=== PATIENT | female | born 1990 | race Caucasian/White ===

== ENCOUNTER 2016-12-01 17:51 | Emergency (ER) | payer OTHER ==
[~2016-12-01] VITALS: Ht 157.5 cm; Wt 53.5 kg
[~2016-12-01 17:51] MED LIST: BACTRIM DS TAB1 EACH PO; FLAGYL500 MG PO
--- NOTE | 2016-12-01 18:12 | ED HEADACHE COMPLAINT ---
See Addendum History of Present Illness General Chief Complaint: Headache Stated Complaint: BORDEN Source: patient Exam Limitations: no limitations Vital Signs & Intake/Output Vital Signs & Intake/Output Vital Signs Date Time Temp Pulse Resp B/P Pulse O2 O2 Flow FiO2 Ox Delivery Rate 12/01 1753 96.7 81 20 123/78 98 Room Air Allergies Coded Allergies: NO KNOWN ALLERGIES (04/14/16) Reconcile Medications Bupropion HCl (Bupropion XL) (Unknown Strength) TAB.ER.24H (Unknown Dose) UNKNOWN (Reported) Gabapentin 300 MG CAPSULE 1 CAP PO TID ANXIETY (Reported) Levonorgestrel (Mirena) 20 MCG/24 HOUR (5 YEARS) IUD CONTROL (Reported) Methylprednisolone. (Medrol) 4 MG TAB.DS.PK 1 DP PO AD migraine Metoclopramide HCl (Reglan) 10 MG TABLET 1 TAB PO Q6-8 PRN nausea/headache Naproxen Sodium (Aleve) 220 MG CAPSULE 2 CAP PO PRN PAIN (Reported) Triage Note: PT TO ED C/O MIGRAINE X 6 DAYS. STATES WAS SEEN AT ANOTHER HOSPITAL 2 DAYS AGO, GIVEN IV MEDS WITH SOME RELIEF. +PHOTOSENSITIVITY, NAUSEA, AND SENSITVITY TO SOUNDS. PT RECENTLY STARTED ON WELLBUTRIN. PT STATES SHE DOES NOT WANT NARCOTICS DUE TO "BEING CLEAN OFF DRUGS FOR 3 YEARS". Triage Nurses Notes Reviewed? yes : No Patient currently breastfeeds: No HPI: Patient is a 26-year-old female presents complaining of severe headache. Headache times approximately 6 days. Pain is a sharp pain, worsens with light and noise. Patient reports that 2 days prior to the onset of her headache her psychiatrist changed her from Neurontin to Wellbutrin. Patient has stopped taking Wellbutrin with no improvement. Patient was seen at another hospital 2 days ago, was administered Toradol, Reglan, Benadryl with brief improvement then pain returned. Headache is currently severe. Patient reports intermittent right upper extremity pain since the onset of her headache. Patient had migraines several years ago. Patient denies numbness, weakness, recent trauma, fevers, rash. (DANG CABELLO,JESUS) Past History Travel History Traveled to [place] past 21 day No Medical History Any Pertinent Medical History? see below for history Psychiatric: anxiety, depression, substance abuse Surgical History Surgical History: non-contributory Psychosocial History What is your primary language Portuguese Tobacco Use: Never used ETOH Use: denies use Illicit Drug Use: denies illicit drug use Family History Hx Contributory? No (JESUS SILVER) Review of Systems Review of Systems Constitutional: Denies: chills, fever. Eyes: Reports: photophobia. Ears, Nose, Throat, Mouth: Reports: no symptoms. Respiratory: Denies: cough, short of breath. Cardiovascular: Denies: chest pain. Gastrointestinal/Abdominal: Reports: nausea, vomiting. Denies: abdominal pain. Genitourinary: Reports: no symptoms. Musculoskeletal: Denies: back pain, neck pain. Skin: Reports: no symptoms. Neurological/Psychological: Reports: see HPI. Hematologic/Endocrine: Reports: no symptoms. Endocrine: Reports: no symptoms. Immunologic/Allergic: Reports: no symptoms. (JESUS SILVER) Physical Exam Physical Exam General Appearance: well developed/nourished, alert, awake Head: atraumatic, normal appearance Eyes: Bilateral: normal appearance, PERRL, EOMI. Ears, Nose, Throat: normal pharynx, normal ENT inspection, hearing grossly normal Neck: normal inspection, supple, full range of motion, no midline tenderness, no appreciable bruit Respiratory: normal breath sounds, no respiratory distress, lungs clear Cardiovascular: regular rate/rhythm Gastrointestinal: soft, non-tender Back: normal inspection, normal range of motion Extremities: normal inspection, normal capillary refill, normal range of motion, no edema Psychiatric: awake, alert, oriented x 3 Cranial Nerves: normal hearing, normal speech, PERRL Coordination/Gait: normal gait Motor/Sensory: no motor/sensory deficits Skin: intact, normal color, warm/dry Core Measures Severe Sepsis Present: No Septic Shock Present: No (JESUS SILVER) Progress Differential Diagnosis: carotid dissection, cluster BORDEN, IC mass/tumor, intracranial Hem., migraine BORDEN, musculoskeletal pain, post LP headache, subarach. Hem., tension BORDEN, viral cephalgia Plan of Care: Orders Procedure Date/time Status HUMAN BETA HCG SCREEN 12/01 1818 Complete COMPREHENSIVE METABOLIC PANEL 12/01 1818 Complete CBC WITHOUT DIFFERENTIAL 12/01 1818 Complete Laboratory Tests 12/01/16 1841: Anion Gap 9, Estimated GFR > 60, BUN/Creatinine Ratio 20.0, Glucose 90, Calcium 9.7, Total Bilirubin 0.7, AST 14, ALT 24, Alkaline Phosphatase 38, Total Protein 6.5, Albumin 3.9, Globulin 2.6, Albumin/Globulin Ratio 1.5, Total Beta HCG NEGATIVE, CBC w Diff NO MAN DIFF REQ, RBC 4.71, MCV 86.5, MCH 28.8, RDW 13.6, MPV 9.8, Gran % 55.1, Lymphocytes % 35.4, Monocytes % 7.4, Eosinophils % 1.6, Basophils % 0.5, Absolute Granulocytes 4.3, Absolute Lymphocytes 2.8, Absolute Monocytes 0.6, Absolute Eosinophils 0.1, Absolute Basophils 0, PUBS MCHC 33.4 1929: Headache is moderately improved. Continues with moderate headache. Reglan ordered. Patient reports she was on sumatriptan previously but it made her have burning sensations throughout her body. Patient awaiting CT scan. (JESUS SILVER) Diagnostic Imaging: Viewed by Me: CT Scan. Hand-Off Endorsed To: INDIO CHAMPION Endorsed Time: 1943 Pending: CT (JESUS SILVER) Radiology Impression: PATIENT: ERICKA NOBLES PRESENT AGE: 26 PATIENT ACCOUNT NO: [id number] : 88 LOCATION: [facility] ORDERING PHYSICIAN: JESUS CABELLO SERVICE DATE: 12/01/16 EXAM TYPE: CAT - CT HEAD WO IV CONTRAST EXAMINATION: CT HEAD WITHOUT CONTRAST CLINICAL INFORMATION: Migraine. Rule out mass or bleed. COMPARISON: None TECHNIQUE: Contiguous axial imaging was performed from the skull base to vertex without intravenous administration of contrast. DLP: 600.71 mGy-cm FINDINGS: There is no evidence of acute intracranial hemorrhage or territorial infarction. No abnormal mass effect or midline shift is seen. Wallace to white matter differentiation is well preserved. No extra-axial fluid collections are identified. The ventricles are normal in size. There is no abnormal attenuation within the brain parenchyma. The osseous structures and soft tissues are normal. The mastoid air cells and visualized portions of the paranasal sinuses are well aerated. IMPRESSION: No acute intracranial pathology. DICTATED BY: MARC DELCID MD DATE/TIME DICTATED:12/01/162007 ENGINEERING PROJECT DESIGNER:ZACK DATE/TIME TRANSCRIBED:12/01/162007 CONFIDENTIAL, DO NOT COPY WITHOUT APPROPRIATE AUTHORIZATION. Comments: 12/01/2016 8:02:32 PM patient signed out to me by DESTINEY Diaz pending CT results. Patient resting comfortably at this time. Reports that the headache is improving. 12/01/2016 8:33:[address] results. She would like to rest for a while and she does not have a ride home and is feeling drowsy. She'll follow up with her primary care physician and return for any worsening symptoms or concerns. Patient nontoxic. (INDIO CHAMPION) Departure Departure Disposition: HOME OR SELF CARE Condition: Stable Clinical Impression Primary Impression: Migraine headache Referrals: [facility] L[facility],ASHLI CHRISTIE MD,EMERSON HELM MD,RICA PATIENT HAS NO PRIMARY CARE DR (PCP/Family) Additional Instructions: Follow up with one of the primary care doctors listed in your discharge paperwork to establish a doctor and for further evaluation. Return to the ER if numbness, weakness, fevers, unable to stay hydrated, pain uncontrollable or worsening of symptoms. Departure Forms: Customer Survey General Discharge Information Prescriptions: Current Visit Scripts Methylprednisolone. (Medrol) 1 DP PO AD #1 DP Metoclopramide HCl (Reglan) 1 TAB PO Q6-8 PRN nausea/headache #12 TAB (DANG CABELLO,JESUS) Departure Time of Disposition: 2030 (INDIO CHAMPION) PA/HOSPITAL NURSING ASSISTANT Co-Sign Statement Statement: ED Attending supervision documentation- [] I saw and evaluated the patient. I have also reviewed all the pertinent lab results and diagnostic results. I agree with the findings and the plan of care as documented in the PA's/HOSPITAL NURSING ASSISTANT's documentation. [x] I have reviewed the ED Record and agree with the PA's/HOSPITAL NURSING ASSISTANT's documentation. [] Additions or exceptions (if any) to the PAs/HOSPITAL NURSING ASSISTANT's note and plan are summarized below: [] (CISCO PARKER,CHE Griffin)
[2016-12-01 18:57] LABS: ABSOLUTE BASOPHIL COUNT 0 /CUMM (0.0-0.2); ABSOLUTE EOSINOPHIL COUNT 0.1 /CUMM (0.0-0.7); ABSOLUTE MONOCYTE COUNT 0.6 /CUMM (0.10-0.60); BASOPHIL % 0.5 % (0.0-2.0); EOSINOPHIL % 1.6 % (0-5); MEAN PLATELET VOLUME 9.8 FL (7.4-10.4)
[2016-12-01 19:01] LABS: ABSOLUTE GRANULOCYTE CT 4.3 /CUMM (1.4-6.5); ABSOLUTE LYMPH COUNT 2.8 /CUMM (1.2-3.4); GRANULOCYTE % 55.1 % (42.2-75.2); HEMATOCRIT 40.8 % (37-47); MEAN CORPUSCULAR HGB 28.8 PG (27.0-31.0); MEAN CORPUSCULAR HGB CONC 33.4 G/DL (33.0-37.0); MEAN CORPUSCULAR VOLUME 86.5 FL (81.0-99.0); PLATELET COUNT 215 /CUMM (130-400); RBC DISTRIBUTION WIDTH 13.6 % (11.5-14.5); RED BLOOD CELL CT 4.71 /CUMM (4.20-5.40); WHITE BLOOD CELL COUNT 7.8 /CUMM (4.8-10.8)
[2016-12-01] MEDS ORDERED: GABAPENTIN300 M2 PO (19:21)
[2016-12-01] MEDS ORDERED: ALEVE220 M1 PO (19:21)
[2016-12-01] MEDS ORDERED: BUPROPION XL150 MG (19:22)
[2016-12-01] MEDS ORDERED: MIRENA1 EACH (19:22)
[2016-12-01] MEDS ORDERED: MEDROL4 M2 PO (19:36)
[2016-12-01] MEDS ORDERED: REGLAN10 M1 PO (19:36)
--- NOTE | 2016-12-01 20:21 | CT SCAN REPORT ---
EXAMINATION: CT HEAD WITHOUT CONTRAST CLINICAL INFORMATION: Migraine. Rule out mass or bleed. COMPARISON: None TECHNIQUE: Contiguous axial imaging was performed from the skull base to vertex without intravenous administration of contrast. DLP: 600.71 mGy-cm FINDINGS: There is no evidence of acute intracranial hemorrhage or territorial infarction. No abnormal mass effect or midline shift is seen. Wallace to white matter differentiation is well preserved. No extra-axial fluid collections are identified. The ventricles are normal in size. There is no abnormal attenuation within the brain parenchyma. The osseous structures and soft tissues are normal. The mastoid air cells and visualized portions of the paranasal sinuses are well aerated. IMPRESSION: No acute intracranial pathology.
[2016-12-01 23:07] VITALS: BP 106/61
== END 2016-12-01 23:11 ==
LOC: ERH 17:51
PROVIDERS: Physician Assistant
DX: G43.909 Migraine, unspecified, not intractable, without status migrainosus (principal)
CPT/HCPCS: 96361; 96365; 96375; J1200; J1885; J2550; J2765; J2930

== ENCOUNTER 2018-05-01 21:43 | Emergency (ER) | payer OTHER ==
[~2018-05-01 21:43] MED LIST changes: +ALEVE220 M1 PO; +BUPROPION XL150 MG; +GABAPENTIN300 M2 PO; +MEDROL4 M2 PO; +MIRENA1 EACH; +REGLAN10 M1 PO
--- NOTE | 2018-05-02 01:57 | ED HEADACHE COMPLAINT ---
History of Present Illness General Chief Complaint: General Adult Stated Complaint: "BORDEN,LIGHT SENSITIVITY" Source: patient, old records, friend Exam Limitations: no limitations Vital Signs & Intake/Output Vital Signs & Intake/Output Vital Signs Date Time Temp Pulse Resp B/P B/P Pulse O2 O2 Flow FiO2 Mean Ox Delivery Rate 05/02 0249 96.9 84 18 113/69 99 Room Air 05/02 0111 Room Air 05/01 2151 96.4 103 18 112/73 99 Room Air Allergies Coded Allergies: NO KNOWN ALLERGIES (04/14/16) Reconcile Medications Bupropion HCl (Bupropion XL) (Unknown Strength) TAB.ER.24H (Unknown Dose) UNKNOWN (Reported) Gabapentin 300 MG CAPSULE 1 CAP PO TID ANXIETY (Reported) Levonorgestrel (Mirena) 20 MCG/24 HOUR (5 YEARS) IUD CONTROL (Reported) Methylprednisolone. (Medrol) 4 MG TAB.DS.PK 1 DP PO AD migraine Metoclopramide HCl (Reglan) 10 MG TABLET 1 TAB PO Q6-8 PRN nausea/headache Naproxen Sodium (Aleve) 220 MG CAPSULE 2 CAP PO PRN PAIN (Reported) Triage Note: PT TO TRIAGE WITH MIGRAINE FOR DAYS UNRELIEVED BY EXCEDRIN. PT HAS HX OF, HAS BEEN HERE FOR SAME AND STATES BENADRYL AND "SOMETHING ELSE WORKS." +PHOTOSENSITIVITY. -N/V. PT STATES NO NARCOTICS Triage Nurses Notes Reviewed? yes Onset: 1 day Duration: day(s):, constant, continues in ED Timing: recent history Quality/Severity: severe, sharp, throbbing Head Injury Location: frontal, temporal No Modifying Factors: none LMP (ages 10-50): unknown : No Patient currently breastfeeds: No HPI: 1 day prior to admission patient complains of left frontotemporal sharp throbbing severe headache associated with nausea and photophobia not relieved with Excedrin Migraine. She denies fever chills vomiting diarrhea chest pain cough shortness breath dysuria rash bleeding. Past History Travel History Traveled to [place] past 21 day No Medical History Any Pertinent Medical History? 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 No Review of Systems Review of Systems Constitutional: Reports: no symptoms. Eyes: Reports: no symptoms. Ears, Nose, Throat, Mouth: Reports: no symptoms. Respiratory: Reports: no symptoms. Cardiovascular: Reports: no symptoms. Gastrointestinal/Abdominal: Reports: no symptoms. Genitourinary: Reports: no symptoms. Musculoskeletal: Reports: no symptoms. Skin: Reports: no symptoms. Neurological/Psychological: Reports: see HPI, anxiety, headache. Hematologic/Endocrine: Reports: no symptoms. Endocrine: Reports: no symptoms. Immunologic/Allergic: Reports: no symptoms. All Other Systems: Reviewed and Negative Physical Exam Physical Exam General Appearance: well developed/nourished, alert, awake, anxious, moderate distress, thin Head: atraumatic, normal appearance Eyes: Bilateral: normal appearance, PERRL, EOMI. Ears, Nose, Throat: normal pharynx, normal ENT inspection, hearing grossly normal Neck: normal inspection, supple, full range of motion, trachea midline Respiratory: normal breath sounds, chest non-tender, no respiratory distress, quiet respiration, lungs clear Cardiovascular: regular rate/rhythm, normal peripheral pulses, norml femoral pulses equa Gastrointestinal: normal bowel sounds, soft, non-tender, no organomegaly Back: normal inspection, normal range of motion, no vertebral tenderness Extremities: normal inspection, normal capillary refill, normal range of motion, no edema Psychiatric: awake, alert, oriented x 3 Cranial Nerves: normal hearing, normal speech, PERRL Coordination/Gait: normal finger to nose, normal gait Motor/Sensory: no motor/sensory deficits Reflexes: 2+: bicep (R), bicep (L). Skin: intact, normal color, warm/dry Lymphatic: no anterior cervical niki Core Measures Sepsis Present: No Sepsis Focused Exam Completed? No Progress Differential Diagnosis: cluster BORDEN, migraine BORDEN, musculoskeletal pain, tension BORDEN Plan of Care: Orders Procedure Date/time Status ACETOMINOPHEN 05/02 27 Complete SALICYLATE 05/02 27 Complete COMPREHENSIVE METABOLIC PANEL 05/02 27 Complete Laboratory Tests 05/02/18 0102: Anion Gap 6, Estimated GFR > 60, BUN/Creatinine Ratio 20.0, Glucose 82, Calcium 9.4, Total Bilirubin 0.3, AST 12 L, ALT 23, Alkaline Phosphatase 39, Total Protein 6.6, Albumin 4.0, Globulin 2.6, Albumin/Globulin Ratio 1.5, Salicylates 3.3, Acetaminophen < 10.0 L Departure Departure Time of Disposition: 218 Disposition: HOME OR SELF CARE Condition: Stable Clinical Impression Primary Impression: Migraine Referrals: Unknown (PCP/Family) Departure Forms: Customer Survey General Discharge Information RELEASE- WORK
[2018-05-02] MEDS ORDERED: BUTALB-ACETAMI1 EACH PO ×4 (02:20→02:30)
[2018-05-02 02:49] VITALS: BP 113/69
== END 2018-05-02 03:27 ==
LOC: ERH 21:43
DX: G43.909 Migraine, unspecified, not intractable, without status migrainosus (principal)
CPT/HCPCS: 96374; 96375; G0480; J1885; J2765